=== PATIENT | female | born 1985 | race Caucasian/White ===

== ENCOUNTER 2016-12-03 05:41 | Day surgery (SDC) | payer BC ==
[~2016-12-03 05:41] MED LIST: ALPRAZOLAM ER0.5 M1 PO; CALCIUM600 M1 PO; CLARITIN10 M6 PO; EFFEXOR XR75 M1 PO; IBUPROFEN200 M3 PO; IRON325 M3 PO; LORTAB 5-500 T1 EAC1 PO; LUPRON; MOTRIN800 MG PO; PRENATAL1 EACH PO; PROVENTIL HFA6.7 G1 IH; PROVENTIL17 GM IH; TUMERIC PO; VALACYCLOVIR1000 M1 PO; VALTREX500 M1 PO; VENLAFAXINE HCL75 M4 PO; VITAMIN C1000 M1 PO; [UNRECOGNIZED DRUG - OTHER]; [UNRECOGNIZED DRUG - REMARK]
== END 2016-12-03 09:05 ==
LOC: SRG 05:41 → SHSB 05:45 → ORW 07:27 → SHSB 08:10
PROC: 0JPV3XZ Removal of Tunneled Vascular Access Device from Upper Extremity Subcutaneous Tissue and Fascia, Percutaneous Approach (ICD-10-PCS; principal; 2016-12-03)
DX: Z45.2 Encounter for adjustment and management of vascular access device (principal); F41.9 Anxiety disorder, unspecified; J45.909 Unspecified asthma, uncomplicated; Z85.3 Personal history of malignant neoplasm of breast; Z98.890 Other specified postprocedural states; Z79.899 Other long term (current) drug therapy; Z08 Encounter for follow-up examination after completed treatment for malignant neoplasm
CPT/HCPCS: J0690